=== PATIENT | female | born 1960 | race Caucasian/White ===

== ENCOUNTER 2018-12-13 22:39 | Emergency (ER) | payer OTHER, SELFPAY ==
[2018-12-13 22:39] VITALS: BP 155/85; PULSE 87; RESP 16; TEMP 36.9; O2SAT 98; BMI 31.1
--- NOTE | 2018-12-13 23:50 | CT_ITS ---
We are attempting to reach Marcelino Chua MD to discuss findings. An addendum with communication details will be sent when the communication is complete. HISTORY: FELL ON CONCRETE 1 HOUR AGO, LACERATION POSTERIOR, LOC AND CONFUSED NOW TECHNIQUE: Multiple axial images were obtained of the brain without intravenous contrast. A radiation dose optimization technique was used for this scan. IV Contrast dosage and agent: None. COMPARISON: None FINDINGS: Normal ventricles. Small cortical contusion with high density cortical hemorrhage and tiny subarachnoid hemorrhage at the high right parietal cortex. No midline shift. Basal ganglia appear normal. Posterior fossa structures are unremarkable. No subdural hematoma identified. The calvarium appears intact. As visualized, the mastoids and paranasal sinuses are clear. CT/Brain/Head without Contrast IMPRESSION: 1. High right parietal acute cortical contusion. No midline shift or significant mass-effect. 2. Abnormal CT results telephoned to the referring service upon exam completion. Individualized dose optimization techniques were used for this CT. at 0104 Reported and signed by: Chilango Avalos MD Electronically Signed: Chilango Avalos, at 1:03 EST Tel , Service support ,
--- NOTE | 2018-12-13 23:51 | ED.VISSUMM ---
- ER Visit Summary Date of Service: 12/13/18 Chief Complaint: Slipped on ice, fell hit the back of her head History of Present Illness: The patient is a 58 F past medical or surgical history. Patient is on no medications. No blood thinners. She slipped on the ice and fell striking the back of her head. In brief loss of consciousness. She denies any vomiting. She denies any neurological symptoms. Denies any C-spine pain. She denies any significant past history of head injuries. Physical Examination: Vital. HEENT exam nontender. No hematoma. No laceration. Pupils round reactive light. Extra motions are. No facial trauma. C-spine nontender. Trachea midline. Normal range of motion. She is bilateral trapezius tenderness. Lungs clear to auscultation bilaterally. Chest wall nontender. Heart regular rate and rhythm no murmur. Abdomen soft and nontender. Pelvic girdle intact. Extremities moving all 4. Neurovascular intact. Normal range of motion. Equal symmetrical 5 out of 5 director community [employer] strength. Dorsi plantar flexion intact. Back nontender. Neurologically she is awake alert. No focal motor or sensory deficits. GCS of 15. NIH is 0. She is awake alert. She knows day month. Test Results: CT scan of the brain without contrast shows posterior cerebral contusion. CT C-spine no acute abnormality both read by the radiologist reviewed by me. CBC normal. BMP normal. PT/INR normal. Emergency Department Course and Treatment: Patient did not want anything for pain and she was not having any nausea. Repeat exam patient is doing well. I discussed all test results with her and her . They are comfortable with the transfer. Treatment Plan: Head injury instructions. Tylenol for pain. Disposition: Discharge Impression: Slipped and fell on the ice Closed head injury with LOC Posterior cerebral contusion This note was generated with Pin [employer] dictation software. It may contain incorrect words, spelling, and punctuation that were not noted in review of the chart prior to signing ED Disposition - Plan for ED Patient: Referrals: Care Physician,No Primary [Primary Care Provider] -
--- NOTE | 2018-12-14 00:26 | CT_ITS ---
HISTORY: S/P FALL ON CONCRETE, CONFUSED WITH LOC, MINIMAL NECK PAIN TECHNIQUE: Helically acquired images were obtained of the cervical spine. 2D reformatted images were reviewed. A radiation dose optimization technique was used for this scan. IV Contrast dosage and agent: None. COMPARISON: None FINDINGS: Cervical vertebra show normal height and alignment. No fracture or acute osseous abnormality. Intact dens and craniocervical junction. C4-5 and C5-6 disc space narrowing accompanied by mild endplate spurring. No bony encroachment of the central spinal canal. C4-5 small uncovertebral spurs bilaterally. Posterior elements appear intact. CT/Spine Cervical without Contras IMPRESSION: 1. Negative for fracture or acute osseous abnormality. 2. C4-5 and C5-6 degenerative disc disease and spondylosis. Individualized dose optimization techniques were used for this CT. at 0111 Reported and signed by: Chilango Avalos MD Electronically Signed: Chilango Avalos, at 1:10 EST Tel , Service support ,
[2018-12-14 00:44] LABS: Hematocrit 39.6 % (37-47); Hemoglobin 14.3 g/dl (12.0-15.0); Mean Corp Hgb Conc 36.1 g/gl (32-36); Mean Corpuscular Hgb 33.4 pg (27.0-32.0); Mean Corpuscular Volume 92.5 fL (81-99); Mean Platelet Vol. 9.9 fl (6.2-12.0); Platelet Count 208 K/mm3 (150-450); RBC Distribution Width CV 12.5 % (11.6-14.6); RBC Distribution Width SD 41.4 fl (35.1-43.9); Red Blood Count 4.28 M/mm3 (4.2-5.4); Scan Indicated on CBC? Y/N NO; White Blood Count 9.7 K/mm3 (4.4-11.0)
[2018-12-14 00:51] LABS: International Normalized Ratio 0.9; Prothrombin Time (Protime)PT. 12.1 SECONDS (11.7-14.9)
[2018-12-14 00:56] LABS: Anion Gap 9 (5-15); BUN 22 mg/dL (7-18); BUN/Creat Ratio 29.1 RATIO (10-20); Calcium,Total 9.3 mg/dL (8.5-10.1); Chloride 105 mmol/L (98-107); Creatinine, Serum 0.76 mg/dL (0.55-1.02); EST Glomerular Filtration Rate 83 mL/min (>60); Est Glom Filt Rate - Afr Amer 101 mL/min (>60); Estimated Creatinine Clearance 63.82 ml/min; Glucose 101 mg/dL (74-106); Sodium Level 140 mmol/L (136-145)
[2018-12-14 01:15] VITALS: BP 145/84; PULSE 91; RESP 20; O2SAT 98
[2018-12-14 01:32] VITALS: BP 144/75; PULSE 90; RESP 16; TEMP 36.9; O2SAT 98
== END 2018-12-14 02:04 | disposition short-term general hospital (02) ==
PROVIDERS: Emergency Provider Emergency Medicine
DX: S00.03XA Contusion of scalp, initial encounter (principal); W00.0XXA Fall on same level due to ice and snow, initial encounter; Y93.9 Activity, unspecified; Y92.9 Unspecified place or not applicable
CPT/HCPCS: 70450; 72125; 80048; 85027; 85610; 99284; A4216

== ENCOUNTER → 2020-01-31 08:49 | Outpatient (CLI) | payer SELFPAY, OTHER ==
--- NOTE | 2020-01-31 09:07 | MRI_ITS ---
STUDY: MRI BRAIN WITH AND WITHOUT CONTRAST (ATTENTION INTERNAL AUDITORY CANALS - I.A.C.''s) REASON FOR EXAM: Female, 60 years old. asymmetric hearing loss, LEFT MORE THAN RIGHT, DIZZINESS TECHNIQUE: Standardized multiplanar fat and water weighted pulse sequences were obtained. iv Dotarem 15ML was administered for the contrast portion of the examination. COMPARISON: CT brain December 13, 2018 FINDINGS: Normal bilateral temporal bones. Normal bilateral internal auditory canals. There is no demonstrated intracanalicular or cisternal vestibular schwannoma (acoustic neuroma). There is no enhancement of the bilateral VIIth or VIIIth cranial nerves. Normal bilateral cochlea, vestibules and semicircular canals. Normal size of the ventricles and extra-axial spaces for the patient''s age. Normal white matter tracts of the supratentorial brain. Normal bilateral basal ganglia. Normal thalami. Normal flow voids within the major intracranial circulation suggesting patency by spin echo criteria. Normal venous enhancement. There is no enhancing intra-axial or extra-axial abnormality. There is no extra-axial fluid accumulation. Normal sella turcica, pituitary gland, infundibular stalk, optic chiasm and hypothalamus. Normal tectal plate and pineal gland. Normal midbrain, augustus and medulla. 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 Normal basal cisterns. No demonstrated orbital abnormality, within the constraints of a routine brain study. Normal visualized paranasal sinuses. Normal calvarium and skull base. Normal visualized soft tissue structures. Normal visualized upper cervical spine. MRI/Brain W/WO Contrast IMPRESSION: Normal unenhanced and enhanced MRI of the bilateral internal auditory canals (I.A.C''s). There does appear a small focal area of encephalomalacia seen in association with the right cerebellar hemisphere consistent with that of prior infarct. This was present previously. Electronically Signed: Rissa Colon MD at 10:56 EDT , Service support ,
[2020-01-31 09:56] LABS: CREATININE FINGERSTICK 0.6 mg/dL (0.55-1.02); EGFR FINGERSTICK > 60.0000 mL/min (>60)
== END ==
PROVIDERS: Referring Provider Otolaryngology; Visit Provider Otolaryngology
DX: H91.92 Unspecified hearing loss, left ear (principal)
CPT/HCPCS: 70553; A9575

== ENCOUNTER → 2021-05-21 14:56 | Outpatient (CLI) | payer SELFPAY ==
--- NOTE | 2021-05-21 15:38 | MRI_ITS ---
STUDY: MR PELVIS WITH T WITHOUT CONTRAST REASON FOR EXAM: Female, 61 years old. ABD AND PELVIS SWELLING, MASS, LUMP TECHNIQUE: Standardized fat and water weighted pulse sequences were obtained in all 3 orthogonal planes, pre-and post contrast administration. IV 15cc dotarem was administered for the contrast portion of the examination. COMPARISON: None. FINDINGS: Normal urinary bladder. Normal visualized small intestine. Normal visualized colon. There is no pelvic fluid. In the left adnexa there is a 5.4 x 4.2 x 5.3 cm T1 hypointense/T2 heterogeneously hypointense mass abutting the left ovary and left posterior lateral uterine wall. It heterogeneously enhances. In the left ovary there is a 3.4 cm well-circumscribed T2 hyperintense cyst with no enhancement. Small nabothian cysts in the cervix. No abnormal lymph nodes. Normal visualized pelvic arteries. Multiple sacral neurenteric cysts. Normal abdominal wall. MRI/Pelvis W/WO Contrast IMPRESSION: 5.4 cm heterogeneously enhancing solid left adnexal mass. It is difficult to determine if this is originating from the left ovary or the uterus as it abuts both and appears well-demarcated. 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 No pelvic lymphadenopathy. Recommend surgical consultation. 3.4 cm simple non-enhancing left ovarian cyst. Electronically Signed: Adam Chowdhury MD at 19:30 EDT Tel , Service support ,
[2021-05-22 07:18] LABS: CREATININE FINGERSTICK 0.63 mg/dL (0.55-1.02); EGFR FINGERSTICK > 60 mL/min (>60)
== END ==
DX: R19.00 Intra-abdominal and pelvic swelling, mass and lump, unspecified site (principal)
CPT/HCPCS: 72197; A9575